=== PATIENT | male | born 2000 | race Caucasian/White ===

== ENCOUNTER 2024-07-05 11:18 | Emergency (ER) | payer SELFPAY ==
[2024-07-05] VITALS (11 sets, daily range): BP systolic 111–126; BP diastolic 59–86; PULSE 63–106; RESP 12–18; TEMP 36.9; O2SAT 95–100; BMI 17.4
--- NOTE | 2024-07-05 11:35 | DI.RAD.S_ITS ---
PROCEDURE: XR CHEST 1V INDICATIONS: chest pain TECHNIQUE: One view of the chest was acquired. COMPARISON: None. FINDINGS: Surgical changes and devices: None. Lungs and pleura: Lungs are clear. No pleural effusions or pneumothorax. Mediastinum: Mediastinal contours appear normal. Heart size is normal. Bones and chest wall: No suspicious bony lesions. Overlying soft tissues appear unremarkable. IMPRESSION: No acute cardiopulmonary abnormality is seen. Dictated by: Kavon Bernard M.D. on 07/05/2024 at 12:21 Approved by: Kavon Bernard M.D. on 07/05/2024 at 12:21
--- NOTE | 2024-07-05 11:41 | EKG_ITS ---
[address] [address] Test Date: 2024-07-05 Pat Name: Heath Bailon Department: [facility] Room: Gender: Male Personal Banking Officer: SAURABH : 2000 Requested By: Order Number: [id number] Reading MD: Fran Wayne Measurements Intervals [place] Rate: 72 P: 70 [place]: 162 QRS: 79 QRSD: 78 T: 68 QT: 344 QTc: 376 Interpretive Statements Sinus rhythm with marked sinus arrhythmia Electronically Signed On 07-07-2024 19:03:02 PST by Fran Wayne
[2024-07-05 11:59] LABS: Add Manual Diff / Slide Review NO; Basophils Absolute Auto 0 /uL (0-100); Basophils Percent Auto 0.2 % (0-2); Eosinophils Absolute Auto 0 /uL (0-450); Eosinophils Percent Auto 0.1 % (2-4); Hemoglobin 15.1 g/dL (13.5-17.5); Lymphocytes Absolute Auto 800 /uL (1100-4500); Lymphocytes Percent Auto 9.7 % (25-40); Mean Corpuscular HGB Conc 33.5 % (30-36); Mean Corpuscular Hemoglobin 29.1 PG (26-34); Mean Corpuscular Volume 87.1 fL (80-100); Monocytes Absolute Auto 300 /uL (0-900); Monocytes Percent Auto 3.6 % (3-14); Neutrophils Absolute Auto 6900 /uL (1500-7000); Neutrophils Percent Auto 86.4 % (50-75); Platelet Count 268 X10^3/uL (150-400); Red Blood Cell Count 5.17 X10^6/uL (4.5-5.9); Red Cell Distribution Width 13.4 % (11.6-14.8)
[2024-07-05 12:08] LABS: Prothrombin Time 10.9 SECONDS (9.4-12.5)
[2024-07-05 12:10] LABS: PTT Partial Thromboplastin Tim 36 SECONDS (25.1-36.5)
[2024-07-05 12:11] LABS: Alanine Aminotransferase 27 IU/L (<50); Albumin 4.8 g/dL (3.5-5.0); Albumin Globulin Ratio 1.5 (1.0-2.8); Alkaline Phosphatase 46 U/L (38-126); Aspartate Aminotransferase 34 IU/L (17-59); BUN Creatinine Ratio 15.2 (6-22); Bilirubin Total 0.6 mg/dL (0.2-1.3); Blood Urea Nitrogen 12 mg/dL (9-20); Calcium 9.4 mg/dL (8.4-10.2); Carbon Dioxide 26 mmol/L (22-32); Chloride 107 mmol/L (98-107); Creatine Kinase 71 U/L (55-170); Estimated Glomerular Filt Rate > 60 mL/min (>60); Globulin 3.2 g/dL (1.7-4.1); Glucose 108 mg/dL (70-100); HEMOLYSIS < 15 (0-50); Lipase 76 U/L (23-300); Magnesium 1.9 mg/dL (1.6-2.3); Potassium 3.6 mmol/L (3.4-5.1); Sodium 141 mmol/L (137-145)
[2024-07-05 12:23] LABS: NT-proBNP (BNP-Adult 18+) < 20 pg/mL (<125); Troponin I < 0.012 ng/mL (0.01-0.034)
--- NOTE | 2024-07-05 13:23 | ED.ARRPALP ---
HPI - Arrhythmia/Palpitations General Chief Complaint: Arrhythmia/Palpitations Stated Complaint: possible heart inflamation, sent by [facility] Time Seen by Provider: 07/05/24 12:04 Source: patient, RN notes reviewed and old records reviewed Mode of arrival: Ambulatory Limitations: no limitations History of Present Illness HPI narrative: 24-year-old male remote history of asthma presents with complaint of chest tightness and palpitations that started about 1:00 a.m. this morning. Patient was sexually active at this. Tightness persisted throughout in his still present but has improved over time. He states palpitations lasted for several hours but improved prior to arrival here. Patient states it felt like it was very fast. States he has a history of asthma remotely but did not feel like that. He denies fevers or chills, no cold cough or congestion. No diaphoresis. No lightheadedness or syncope. No severe headaches. No nausea or vomiting. No issues with bowel movements, no urinary issues. No new swelling of extremities. Patient states he was active. No sitting for long periods of time. No daily prescription medications. States he had asthma episode a long time ago but no recurrent episodes. States only prior surgical history is wisdom teeth. No known drug allergies. Denies tobacco use, occasional alcohol, rare edible marijuana, no recreational drugs otherwise. Related Data Home Medications Medication Instructions Recorded Confirmed dextroamphetamine-amphetamine ER 10 mg PO ##0 07/09/16 20 mg 24hr capsule,extend release (Adderall XR) fluticasone propionate 110 ##0 07/09/16 mcg/actuation HFA aerosol inhaler (Flovent HFA) Allergies Allergy/AdvReac Type Severity Reaction Status Date / Time No Known Allergies Allergy Uncoded 11/26/17 12:39 Review of Systems Review of Systems ROS Unobtainable: All systems reviewed & are unremarkable except as noted in HPI and below Patient History Social History Smoking Status: Never smoker Smoking Status: Never smoker alcohol intake frequency: a few times a week Substance Use Type: does not use Exam Narrative Exam Narrative: GENERAL: Alert and oriented x three, thin male in mild distress HEENT: Head normocephalic, atraumatic, EOMI, pupils reactive, face symmetric, moist mucous membranes NECK: Supple, full range of motion CARDIOVASCULAR: Regular rate and rhythm without murmurs, rubs or gallops. No JVD. No edema bilateral lower extremities. RESPIRATORY: Breath sounds equal bilaterally, no wheezes rales or rhonchi. No tachypnea or accessory muscle use. Speaks in full sentences. ABDOMEN: Soft, nontender. Normoactive bowel sounds all 4 quadrants. No guarding or rebound, rigidity, no mass : No CVA tenderness EXTREMITIES: Normal range of motion, no clubbing or edema. Neurovascularly intact NEUROLOGICAL: Cranial nerves II through XII grossly intact. Moving all extremities SKIN: Warm, dry, no petechiae, no rashes or lesions. Initial Vital Signs Initial Vital Signs: Vital Signs Temperature 98.4 F 07/05/24 11:24 Pulse Rate 71 07/05/24 11:24 Respiratory Rate 18 07/05/24 11:24 Blood Pressure 113/65 07/05/24 11:24 Pulse Oximetry 98 07/05/24 11:24 Oxygen Delivery Method Room Air 07/05/24 11:24 Scores HEART Score Heart Score history: Slightly Suspicious Heart Score EKG: Non-Specific repolarization disturbance Heart Score Age: < 45 years old Heart Score risk factors: No known risk factors Heart Score troponin: < or = to normal limit Heart Score Total: 1 PERC Score Age greater than or equal to 50 years: No Heart rate greater than or equal to 100 bpm: No Room Air O2 Sat less than 95%: No Unilateral leg swelling: No Recent trauma or surgery: No Hemoptysis: No Prior PE or DVT: No Hormone Use: No Total PERC Score: 0 Course Orders Ordered: ED Orders 07/05/24 11:35 XR chest 1V Stat EKG-12 Lead Stat 07/05/24 11:54 Complete Blood Count AUTO DIFF Stat Comprehensive Metabolic Panel Stat Lipase Stat Magnesium Stat NT-proBNP (BNP-Adult 18+) Stat PTT Partial Thromboplastin Warren Stat Prothrombin Time INR Stat Troponin & CK Cardiac Panel Stat Vital Signs Vital signs: Vital Signs - 8 hr 07/05/24 11:24 07/05/24 11:36 07/05/24 11:37 Temperature 98.4 F Pulse Rate 71 78 Respiratory Rate 18 Blood Pressure 113/65 126/86 Pulse Oximetry 98 Oxygen Delivery Method Room Air 07/05/24 11:37 07/05/24 12:00 07/05/24 12:00 Temperature Pulse Rate 71 77 Respiratory Rate 15 Blood Pressure 114/68 Pulse Oximetry 99 100 Oxygen Delivery Method Room Air 07/05/24 12:30 07/05/24 12:30 07/05/24 13:00 Temperature Pulse Rate 68 Respiratory Rate 12 Blood Pressure 125/82 122/74 Pulse Oximetry 100 Oxygen Delivery Method Room Air 07/05/24 13:00 07/05/24 13:30 07/05/24 13:31 Temperature Pulse Rate 68 63 Respiratory Rate 17 15 Blood Pressure 111/59 L Pulse Oximetry 100 100 Oxygen Delivery Method Room Air 07/05/24 13:31 07/05/24 14:00 07/05/24 14:01 Temperature Pulse Rate 64 73 Respiratory Rate 14 Blood Pressure 120/83 Pulse Oximetry 100 95 Oxygen Delivery Method 07/05/24 14:05 Temperature Pulse Rate 106 H Respiratory Rate 14 Blood Pressure Pulse Oximetry 96 Oxygen Delivery Method MDM - Arrhythmia/Palpitations Lab Data 07/05/24 11:54 07/05/24 11:54 Labs: Lab Results 07/05/24 Range/Units 11:54 WBC 8.0 (4.5-11.0) X10^3/uL RBC 5.17 (4.5-5.9) X10^6/uL Hgb 15.1 (13.5-17.5) g/dL Hct 45.0 (41-53) % MCV 87.1 (80-100) fL MCH 29.1 (26-34) PG MCHC 33.5 (30-36) % RDW 13.4 (11.6-14.8) % Plt Count 268 (150-400) X10^3/uL Neut % (Auto) 86.4 H (50-75) % Lymph % (Auto) 9.7 L (25-40) % [place] % (Auto) 3.6 (3-14) % Eos % (Auto) 0.1 L (2-4) % Baso % (Auto) 0.2 (0-2) % Neut # (Auto) 6900 (0321-5556) /uL Lymph # (Auto) 800 L (8279-3659) /uL [place] # (Auto) 300 (0-900) /uL Eos # (Auto) 0 (0-450) /uL Baso # (Auto) 0 (0-100) /uL PT 10.9 (9.4-12.5) SECONDS INR 1.0 (0.9-1.3) APTT 36 (25.1-36.5) SECONDS Sodium 141 (137-145) mmol/L Potassium 3.6 (3.4-5.1) mmol/L Chloride 107 (98-107) mmol/L Carbon Dioxide 26 (22-32) mmol/L BUN 12 (9-20) mg/dL Creatinine 0.79 (0.66-1.25) mg/dL Estimated GFR > 60 (>60) mL/min BUN/Creatinine Ratio 15.2 (6-22) Glucose 108 H (70-100) mg/dL Calcium 9.4 (8.4-10.2) mg/dL Magnesium 1.9 (1.6-2.3) mg/dL Total Bilirubin 0.6 (0.2-1.3) mg/dL AST 34 (17-59) IU/L ALT 27 (<50) IU/L Alkaline Phosphatase 46 (38-126) U/L Total Creatine Kinase 71 (55-170) U/L Troponin I < 0.012 (0.01-0.034) ng/mL NT-Pro-B Natriuret Pep < 20 (<125) pg/mL Total Protein 8.0 (6.3-8.2) g/dL Albumin 4.8 (3.5-5.0) g/dL Globulin 3.2 (1.7-4.1) g/dL Albumin/Globulin Ratio 1.5 (1.0-2.8) Lipase 76 (23-300) U/L Imaging Data Chest x-ray: Radiologist's Impresson: [place] [address] XRay Report Signed Patient: Heath Bailon MR#: [id number] : 2000 Acct:[id number] Age/Sex: 24 / M Date of Service: 07/05/24 Loc: ED Accession Number: [id number] Procedure: XR chest 1V Ordering Provider: Tegan Mcdonald D.O. PROCEDURE: XR CHEST 1V INDICATIONS: chest pain TECHNIQUE: One view of the chest was acquired. COMPARISON: None. FINDINGS: Surgical changes and devices: None. Lungs and pleura: Lungs are clear. No pleural effusions or pneumothorax. Mediastinum: Mediastinal contours appear normal. Heart size is normal. Bones and chest wall: No suspicious bony lesions. Overlying soft tissues appear unremarkable. IMPRESSION: No acute cardiopulmonary abnormality is seen. Dictated by: Kavon Bernard M.D. on 07/05/2024 at 12:21 Approved by: Kavon Bernard M.D. on 07/05/2024 at 12:21 ECG Data Attestation: I personally reviewed and interpreted this ECG as follows: Prior ECG tracings: not available for review Interpretation: Sinus rhythm with marked sinus arrhythmia rate of 72 MD 162 QRS is 78 QTC of 376, no acute ST elevation. No priors for comparison. MDM Narrative Medical decision making narrative: [age] year old male sent from urgent Care in [place] around 0100 was sexually active and had sudden onset of chest tightness and felt palpitations or that his heart was racing still feeling tight but racing had resolved. Does have a history of asthma remotely patient states this feels different. Patient's vitals here has been appropriate. He states symptoms have not completely resolved but feel much better. Normal white count, hemoglobin 15.1 platelets of 268 predominance of neutrophils. Coags are negative. Electrolytes are appropriate BUN 12 creatinine 0.79 glucose is 108 magnesium is 1.9 LFTs are negative troponins less than 0.012 and obtained 11 hours after incident started. Patient with a BNP of less 20. EKG shows sinus rhythm with sinus arrhythmia LVH Chest x-ray shows no acute Heart score is 1 Discharge Plan Departure Patient Disposition: Home Clinical Impression: Palpitations Instructions: DI for Palpitations Activity Restrictions/Additional Instructions: Please return for recurrent symptoms, if you have recurrent episodes of palpitations or tightness you should follow up with primary care for further evaluation. Please return for new chest pain or tightness, shortness of breath, lightheadedness or passing out, new swelling of extremities, nausea or vomiting, persistent palpitations or fast or irregular heartbeat or other new or concerning changes. Prescriptions: No Action dextroamphetamine-amphetamine [Adderall XR] 20 MG capsule,extended release 24hr 10 mg PO Qty: 0 fluticasone propionate [Flovent HFA] 12 GM HFA aerosol inhaler Qty: 0 Stand Alone Forms: Patient Portal/API/Survey
== END 2024-07-05 14:19 | disposition home or self-care (01) ==
PROVIDERS: Emergency Provider Emergency Medicine
DX: R00.2 Palpitations (principal); R07.9 Chest pain, unspecified
CPT/HCPCS: 36415; 71045; 80053; 82550; 83690; 83735; 83880; 84484; 85025; 85610; 85730; 93005; 99283; 99284